=== PATIENT | female | born 1955 | race Caucasian/White ===

== ENCOUNTER 2016-04-01 06:55 | Day surgery (SDC) | payer OTHER ==
[2016-04-01] VITALS (14 sets, daily range): BP systolic 107–151; BP diastolic 53–74; PULSE 56–79; RESP 11–25; Ht 160 cm; Wt 90.0 kg
[~2016-04-01] VITALS: Ht 160 cm; Wt 90.0 kg
[2016-04-01] MEDS ORDERED: SOD CHLORIDE 0.9% 1,000 ML IV ONE (07:00)
[2016-04-01] MEDS ORDERED: CEFAZOLIN 2 GM/50 ML (PMX) 50 ML IVPB ONE (07:00)
[2016-04-01] MEDS ORDERED: LISI1TAB8 PO (07:46)
[2016-04-01] MEDS ORDERED: ACET-141 PO (07:46)
[2016-04-01] MEDS ORDERED: LOVA20TA PO (07:46)
[2016-04-01] MEDS ORDERED: OMEP20CA16 PO (07:46)
[2016-04-01] MEDS ORDERED: PROPOFOL 20 ML ONE (09:12)
[2016-04-01] MEDS ORDERED: LIDOCAINE 2% (SDV) 5 ML INJ ONE (09:12)
[2016-04-01] MEDS ORDERED: SUCCINYLCHOLINE CHLORIDE 100 MG/5 ML SYG IV ONE (09:12)
[2016-04-01] MEDS ORDERED: ROCURONIUM 50 MG INJ ONE (09:12)
[2016-04-01] MEDS ORDERED: MEPERIDINE 100 MG INJ ONE (09:12)
[2016-04-01] MEDS ORDERED: GLYCOPYRROLATE 0.4 MG INJ ONE ×3 (09:12→10:01)
[2016-04-01] MEDS ORDERED: NEOSTIGMINE 3 MG/3 ML SYRINGE ONE ×3 (09:12→10:01)
[2016-04-01] MEDS ORDERED: CEFAZOLIN 1 GM INJ ONE (09:15)
[2016-04-01] MEDS ORDERED: ONDANSETRON 4 MG INJ ONE (09:15)
[2016-04-01] MEDS ORDERED: METOCLOPRAMIDE 10 MG INJ ONE (09:15)
[2016-04-01] MEDS ORDERED: BUPIVACAINE 0.25% (MPF) 30 ML INJ ONE (09:16)
[2016-04-01] MEDS ORDERED: MEPERIDINE 25 MG INJ IV PRN (09:30)
[2016-04-01] MEDS ORDERED: ONDANSETRON 4 MG INJ IV PRN (09:30)
[2016-04-01] MEDS ORDERED: EPHEDrine SULFATE 50 MG/5 ML SYG IV PRN (09:30)
[2016-04-01] MEDS ORDERED: LABETALOL HCL 20MG INJ IV PRN (09:30)
[2016-04-01] MEDS ORDERED: hydrALAzine 20 MG INJ IV PRN (09:30)
[2016-04-01] MEDS ORDERED: DIPHENHYDRAMINE 50 MG INJ IV PRN (09:30)
[2016-04-01] MEDS ORDERED: HYDROmorphONE (0.2 MG/ML) 10ML SYG IV PRN ×2 (09:30)
[2016-04-01] MEDS ORDERED: FENTAnyl 50 MCG/ML VIAL IV PRN ×2 (09:30)
[2016-04-01] MEDS ORDERED: MIDAZOLAM 1 MG/ML 2 ML INJ IV PRN (09:30)
[2016-04-01] MEDS ORDERED: morphine (1 MG/ML) 10ML SYRINGE IV PRN ×2 (09:30)
[2016-04-01] MEDS ORDERED: METOCLOPRAMIDE 10 MG INJ IV PRN (09:30)
[2016-04-01] MEDS ORDERED: BUPIVACAINE 0.25% (MPF) 30 ML INJ INJ ONE (09:57)
[2016-04-01] MEDS ORDERED: HYDROCODONE/APAP (5/325) TAB PO ONE (10:30)
--- NOTE | 2016-04-01 12:03 | OPR ---
DATE OF OPERATION: 04/01/2016 INDICATION: This is a 60-year-old female with symptomatic gallstones. She requests surgical excisi on of her gallbladder. Risks, alternatives, benefits, and personnel were discussed with the patient . Patient expressed understanding and consents to the operation. PREOPERATIVE DIAGNOSIS: Symptomatic gallstones. POSTOPERATIVE DIAGNOSIS: Symptomatic gallstones. OPERATION: Laparoscopic cholecystectomy. SURGEON: Abdifatah Chamberlain MD SPECIMEN: Gallbladder. COMPLICATIONS: None. ANESTHESIA: General. PROCEDURE: The patient was taken to the OR and prepped and draped in the usual sterile fashion. Camara rgical timeout was performed. IV antibiotics were given. Infraumbilical transverse incision is mad e with a 15 blade. Dissection cautery was carried down to the fascia which was grasped with Kochers and divided with curved Street scissors. An 0 Vicryl U-stitch was placed in the fascia. Balloon Has son trocar was introduced. Pneumoperitoneum was established. A midepigastric 12 mm optical trocar and right upper quadrant and right upper flank 5 mm optical trocars were placed under direct visuali zation. Upon initial inspection, there were some adhesions to the gallbladder which were taken down bluntly. The cystic duct was identified. The critical view was established. The cystic duct and cystic artery were divided using a 35 mm [place] vascular load stapler. The gallbladder was taken o ff the gallbladder bed. There was good hemostasis. Gallbladder was retrieved using an EndoCatch ba g. Ports were removed under direct visualization. Then 0 Vicryl U-stitch was tied down. Skin was closed using skin mallorie. Local anesthesia was injected and dressings were applied. Dictated By: ABDIFATAH CHAMBERLAIN MD SB/PRITI Conf#: [id number] DID#: [id number]
== END 2016-04-01 12:34 | disposition home or self-care (01) ==
LOC: SDS 06:55
PROVIDERS: ATTEND Surgery
DX: K80.10 Calculus of gallbladder with chronic cholecystitis without obstruction (principal); I10 Essential (primary) hypertension; E78.5 Hyperlipidemia, unspecified
CPT/HCPCS: 47562; 88304; J0330; J0690; J1170; J2175; J2405; J2710; J2765; Z7512; Z7610

== ENCOUNTER 2016-10-14 07:43 | Day surgery (SDC) | payer OTHER ==
[~2016-10-14] VITALS: Ht 160 cm; Wt 91.2 kg
[~2016-10-14 07:43] MED LIST: ACET-141 PO; LISI1TAB8 PO; LOVA20TA PO; OMEP20CA16 PO
[2016-10-14] MEDS ORDERED: LISINOPRIL (08:31)
[2016-10-14] MEDS ORDERED: OMEPRAZOLE (08:31)
[2016-10-14] MEDS ORDERED: LOVASTATIN (08:31)
[2016-10-14 08:32] VITALS: Ht 160 cm; Wt 91.2 kg
[2016-10-14] MEDS ORDERED: LIDOCAINE 4% SOLUTION 50 ML BTL ONE (08:55)
[2016-10-14 09:07] VITALS: BP 165/73; PULSE 67; RESP 17
--- NOTE | 2016-10-14 09:21 | OPPN ---
Date/Time of Note Date/Time of Note DATE: 10/14/16 TIME: 09:17 Proc Note GI Procedure date: Oct 14, 2016 Pre-procedure Diagnosis History of chronic gastroesophageal reflux disease in terms of her chronic heartburn Post-procedure Diagnosis Erosive esophagitis Mild antral gastritis Polyp noted in the antrum Operation Performed EGD Surgeon: AMINATA CHRISTIAN MD Anesthesia Type: moderate sedation Estimated blood loss: none Transfusion Required: no Specimens Biopsy and esophageal biopsy Grafts/Implants: none Complications: no Pt Condition post procedure: stable Indications Heartburn Operative\Procedure Findings After the informed written consent is obtained patient was ostial in the left lateral side total 4 mg Versed and 50 mcg of fentanyl was given as intravenous anesthesia.. when the pt Became somnolent Olympus video upper endoscope was introduced into the oropharynx and then into the esophagus Linear erosions were noted in the distal esophagus were obtained flat polyp 3mm was noted in the antrum biopsies were done areas of erythema noted in the antrum and fundus of the stomach Was done from the antrum and the lesser curvature. Duodenum showed normal mucosa up to the end of the third portion This and was withdrawn and procedure was terminated Omeprazole 40 mg a day and wait for the biopsy report AMINATA Rodriguez dr, MD Oct 14, 2016 09:21
--- NOTE | 2016-10-14 09:53 | OPPN ---
Date/Time of Note Date/Time of Note DATE: 10/14/16 TIME: 09:49 Proc Note GI Procedure date: Oct 14, 2016 Pre-procedure Diagnosis Change in bowel habits rule out colorectal neoplasm Post-procedure Diagnosis 2 polyps noted in the proximal descending colon and #2 diverticulosis Operation Performed Colonoscopy Surgeon: AMINATA CHRISTIAN MD Anesthesia Type: moderate sedation Estimated blood loss: none Transfusion Required: no Specimen: none (Colon polyps) Grafts/Implants: none Grafts/Implants None Tubes/Drains None Complications: no Pt Condition post procedure: stable Indications change in bowel habits rule out colon polyp Operative\Procedure Findings After the informed written consent is obtained patient was ostial in the left lateral side intravenous anesthesia was given which included 5 mg Versed and 75 mcg of fentanyl When the patient become somnolent Olympus video colonoscope was introduced into the rectum and advanced all the way to the cecum 2 flat polyps were noted in the proximal descending colon measuring 3-4 mm in diameter close to each other this was removed with the biopsy forceps Occasional diverticula noted in the colon it was not bleeding there are small in size Rest of the colon up to the cecum appeared normal.. pediotric colonoscope was used to complete the procedure Scope was withdrawn and no additional abnormalities detected and the procedure was terminated plan recommend wait for the pathology report cc AMINATA Baxter dr, MD Oct 14, 2016 09:53
[2016-10-14] MEDS ORDERED: FENTAnyl 50 MCG/ML VIAL ONE (10:01)
[2016-10-14] MEDS ORDERED: MIDAZOLAM 1 MG/ML 2 ML INJ ONE ×3 (10:02)
[2016-10-14 10:32] VITALS: BP 118/66; PULSE 60; RESP 14
== END 2016-10-14 11:47 | disposition home or self-care (01) ==
LOC: GIL 07:43
PROVIDERS: ATTEND Internal Medicine Gastroenterology
DX: Z12.11 Encounter for screening for malignant neoplasm of colon (principal); K29.50 Unspecified chronic gastritis without bleeding; K21.0 Gastro-esophageal reflux disease with esophagitis; D12.2 Benign neoplasm of ascending colon; K57.90 Diverticulosis of intestine, part unspecified, without perforation or abscess without bleeding; I10 Essential (primary) hypertension
CPT/HCPCS: 43239; 45380; 88305; 88312; 88313; J2250; J3010; Z7610